=== PATIENT | female | born 1960 | race Caucasian/White ===

== ENCOUNTER → 2016-08-12 | Outpatient (CLI) | payer BC | LOC: RAD 15:01 | PROVIDERS: ATTEND Family Medicine | DX: M25.562 Pain in left knee (principal); M22.42 Chondromalacia patellae, left knee ==

== ENCOUNTER → 2018-03-24 | Outpatient (CLI) | payer BC ==
[2018-03-24 08:08] LABS: ABSOLUTE BASOPHILS # (AUTO) 0.1 10^3/uL (0.0-0.2); ABSOLUTE EOSINOPHILS # (AUTO) 0.2 10^3/uL (0.0-0.6); ABSOLUTE LYMPHOCYTES (AUTO) 2.3 10^3/uL (0.5-4.7); ABSOLUTE MONOCYTES (AUTO) 0.5 10^3/uL (0.1-1.4); ABSOLUTE NEUT (AUTO) 5.1 10^3/uL (1.7-8.2); BASOPHILS % (AUTO) 0.8 % (0-2); EOSINOPHILS % (AUTO) 2.5 % (0-6); HEMATOCRIT 41.5 % (36.0-47.0); HEMOGLOBIN 14.2 g/dL (12.0-15.5); LYMPHOCYTES % (AUTO) 28.1 % (13-45); MEAN CORPUSCULAR HEMOGLOBIN 30.3 pg (27.0-33.4); MEAN CORPUSCULAR HGB CONC 34.3 g/dL (32.0-36.0); MEAN CORPUSCULAR VOLUME 89 fl (80-97); MONOCYTES % (AUTO) 6.2 % (3-13); PLATELET COUNT 136 10^3/uL (150-450); RED BLOOD COUNT 4.69 10^6/uL (3.72-5.28); RED CELL DISTRIBUTION WIDTH 13.2 % (11.5-14.0); SEGMENTED NEUTROPHILS % (AUTO) 62.4 % (42-78); TOTAL CELLS COUNTED % (AUTO) 100 %; WHITE BLOOD COUNT 8.2 10^3/uL (4.0-10.5)
[2018-03-24 08:35] LABS: ALANINE AMINOTRANSFERASE 38 U/L (9-52); ALBUMIN 4.2 g/dL (3.5-5.0); ALKALINE PHOSPHATASE 82 U/L (38-126); ASPARTATE AMINO TRANSFERASE 32 U/L (14-36); BILIRUBIN,DIRECT 0.4 mg/dL (0.0-0.4); BILIRUBIN,TOTAL 0.5 mg/dL (0.2-1.3); BLOOD UREA NITROGEN 28 mg/dL (7-20); CALCIUM 9.2 mg/dL (8.4-10.2); CARBON DIOXIDE 28 mmol/L (22-30); CHLORIDE 103 mmol/L (98-107); CHOLESTEROL 207.22 mg/dL (0-200); GLUCOSE 114 mg/dL (75-110); POTASSIUM 4.6 mmol/L (3.6-5.0); TRIGLYCERIDES 213 mg/dL (<150)
[2018-03-24 08:48] LABS: ANION GAP 8 (5-19); SODIUM 138.6 mmol/L (137-145)
[2018-03-24 08:49] LABS: DIRECT LDL 112 mg/dL (<100)
[2018-03-24 08:57] LABS: VLDL CHOLESTEROL 42.6 mg/dL (10-31)
== END ==
LOC: OD 07:14
PROVIDERS: ATTEND Nurse Practitioner Family
DX: Z13.1 Encounter for screening for diabetes mellitus (principal); K44.9 Diaphragmatic hernia without obstruction or gangrene; Z13.220 Encounter for screening for lipoid disorders; E66.3 Overweight
CPT/HCPCS: 36415; 80053; 80061; 83036; 84443; 85025

== ENCOUNTER → 2018-05-11 | Outpatient (CLI) | payer BC ==
--- NOTE | 2018-05-11 13:56 | WOMENS IMAGING REPORT ---
EXAM DESCRIPTION: RIGHT DIAGNOSTIC MAMMO W/CAD COMPLETED DATE/TIME: 05/11/2018 12:14 pm REASON FOR STUDY: RIGHT DIAGNOSTIC MAMMO R92.2/ CLUSTER OF CALCIFICATIONS R92.2 INCONCLUSIVE MAMMOG RICHARD COMPARISON: 05/05/2018 TECHNIQUE: True lateral and magnification views. LIMITATIONS: None. FINDINGS: BREAST: right MASSES: No suspicious masses. CALCIFICATIONS: Calcifications upper inner quadrant posteriorly uniform density without evidence of b ranching or associated mass. ARCHITECTURAL DISTORTION: None. DEVELOPING DENSITY: None. ASYMMETRY: None noted. OTHER: No other significant findings. IMPRESSION: Benign findings. BREAST DENSITY: c. The breasts are heterogeneously dense, which may obscure small masses. BIRAD: 2 Benign findings. RECOMMENDATION: RECOMMENDED FOLLOW UP: Birads 1 or 2: The patient should resume routine screening . SPECIFIC INTERVENTION/IMAGING/CONSULTATION RECOMMENDED:No additional intervention/ imaging/consultati on needed at this time. COMMUNICATION:The imaging findings were not discussed with the patient. Her referring provider has be en notified of the findings. COMMENT: The patient has been notified of the results by letter per SA requirements. Additional no tification policies are in place for contacting patient with suspicious or incomplete findings. Quality ID #[id number]: The [employer] recommends an annual screening mammogram for women aged 40 years or over. This facility utilizes a reminder system to ensure that all patients receive reminder letters, and/or direct phone calls for appointments. This includes reminders for routine scr eening mammograms, diagnostic mammograms, or other Breast Imaging Interventions when appropriate. Th is patient will be placed in the appropriate reminder system. The [employer] (A[employer]) has developed recommendations for screening MRI of the breast s in certain patient populations, to be used in conjunction with mammography. Breast MRI surveillanc e may be appropriate for women with more than 20% lifetime risk of developing breast cancer as deter mined by genetic testing, significant family history of the disease, or history of mantle radiation f or Hodgkins Disease. ACR Practice Guidelines 2008. TECHNICAL DOCUMENTATION: FINDING NUMBER: (1) ASSESSMENT: (1) JOB ID: [id number] [employer]- All Rights Reserved Reading location - IP/workstation name: [facility]
== END ==
LOC: WI 11:45
PROVIDERS: ATTEND Nurse Practitioner Family
DX: R92.2 Inconclusive mammogram (principal)

== ENCOUNTER → 2018-11-16 | Outpatient (CLI) | payer BC ==
[2018-11-16 09:51] LABS: ABSOLUTE BASOPHILS # (AUTO) 0.1 10^3/uL (0.0-0.2); ABSOLUTE EOSINOPHILS # (AUTO) 0.2 10^3/uL (0.0-0.6); ABSOLUTE LYMPHOCYTES (AUTO) 2.3 10^3/uL (0.5-4.7); ABSOLUTE MONOCYTES (AUTO) 0.5 10^3/uL (0.1-1.4); ABSOLUTE NEUT (AUTO) 4.8 10^3/uL (1.7-8.2); BASOPHILS % (AUTO) 0.9 % (0-2); HEMATOCRIT 40.2 % (36.0-47.0); HEMOGLOBIN 13.4 g/dL (12.0-15.5); LYMPHOCYTES % (AUTO) 29.6 % (13-45); MEAN CORPUSCULAR HEMOGLOBIN 29.4 pg (27.0-33.4); MEAN CORPUSCULAR HGB CONC 33.4 g/dL (32.0-36.0); MEAN CORPUSCULAR VOLUME 88 fl (80-97); MONOCYTES % (AUTO) 6.3 % (3-13); PLATELET COUNT 144 10^3/uL (150-450); RED BLOOD COUNT 4.56 10^6/uL (3.72-5.28); RED CELL DISTRIBUTION WIDTH 13.6 % (11.5-14.0); SEGMENTED NEUTROPHILS % (AUTO) 61.2 % (42-78); TOTAL CELLS COUNTED % (AUTO) 100 %; WHITE BLOOD COUNT 7.8 10^3/uL (4.0-10.5)
[2018-11-16 10:11] LABS: CHOLESTEROL 185.35 mg/dL (0-200); IRON(TIBC) 87.8 ug/dL (37-170); TRIGLYCERIDES 101 mg/dL (<150)
[2018-11-16 10:25] LABS: DIRECT LDL 106 mg/dL (<100)
[2018-11-16 11:18] LABS: FOLATE 6.64 ng/mL (>2.76)
== END ==
LOC: OD 09:13
PROVIDERS: ATTEND Nurse Practitioner Family
DX: R53.83 Other fatigue (principal); Z13.220 Encounter for screening for lipoid disorders
CPT/HCPCS: 36415; 80061; 82607; 82728; 82746; 83036; 83540; 83550; 84443; 85025

== ENCOUNTER → 2020-04-27 | Outpatient (CLI) | payer BC ==
[2020-04-27 10:04] VITALS: BP 107/52
--- NOTE | 2020-04-27 10:04 | ER RDC ASSESSMENT REPORT ---
Intake - In the Last 14 days Have you traveled outside [place]?: No Have you been in close contact with someone CONFIRMED: Yes Worked in Healthcare?: Yes --Where?: Patient is an RN and works at [employer] - Symptoms Subjective Fever([place] feverish): No Chills: No Muscule Aches: No Runny Nose: Yes Sore Throat: Yes Cough (New or worsening chronic cough): No Shortness of breath: No Nausea or Vomiting: No Headache: No Abdominal Pain: No Diarrhea(3 or more loose stools in last 24 hours): No - Do you have any of the following Chronic lung disease: Asthma or emphysema or COPD: No Cystic Fibrosis: No Diabetes: No High Blood Pressure: No Cardiovascular Disease: No Chronic Kidney Disease: No Chronic Liver Disease: No Chronic blood disorder like Sickle Cell Disease: No Weak immune system due to disease or medication: No Neurologic condition that limits movement: No Developmental delay - Moderate to Severe: No Recent (within past 2 weeks) or current : No Morbid Obesity (>100 pounds over ideal weight): No Obesity Comment: Height 5 feet 9 inches weight 191 pounds - Objective Temperature: 98.5 F Pulse Rate: 64 Respiratory Rate: 16 Blood Pressure: 107/52 O2 Sat by Pulse Oximetry: 96 Objective: Given above, testing performed: If Testing Performed: Test Specimen Type Sent to General - General Information source: Patient Notes: Patient here at [facility] for Covid testing patient reports had positive exposure to someone known positive for Covid on last Thursday and Thursday patient started to have symptoms on Thursday to include congestion runny nose sore throat patient is a nurse at [employer]. - Related Data Allergies/Adverse Reactions: Sulfa (Sulfonamide Antibiotics) Allergy (Intermediate, Verified 04/16/15 07:54) RASH,ITCHING PPD Allergy (Uncoded 04/16/15 07:54) Converter Past Medical History - General Information source: Patient - Social History Smoking Status: Former Smoker - Quit 20 years ago - Past Medical History Cardiac Medical History: Denies: Hx Coronary Artery Disease, Hx Heart Attack, Hx Hypertension Pulmonary Medical History: Denies: Hx Asthma, Hx COPD, Hx Pneumonia Neurological Medical History: Denies: Hx Cerebrovascular Accident, Hx Seizures GI Medical History: Reports: Hx Gastroesophageal Reflux Disease, Hx Hiatal Hernia. Denies: Hx Hepatitis, Hx Ulcer Musculoskeletal Medical History: Reports Hx Arthritis Infectious Medical History: Denies: Hx Hepatitis Past Surgical History: Reports: Hx Hysterectomy. Denies: Hx Adenoidectomy, Hx Mastectomy, Hx Open Heart Surgery, Hx Pacemaker Physical Exam - General General appearance: Appears well, Alert In distress: None Notes: PHYSICAL EXAMINATION: GENERAL: Well-appearing and in no acute distress. HEAD: Atraumatic, normocephalic. EYES: sclera anicteric, conjunctiva are normal. ENT: nares patent. Moist mucous membranes. NECK: Normal range of motion, supple without lymphadenopathy LUNGS: CTAB and equal. No wheezes rales or rhonchi. Respirations even and unlabored lung sounds clear HEART: Regular rate and rhythm without murmurs ABDOMEN: Soft, nontender, normal bowel sounds, no guarding. EXTREMITIES: Normal range of motion, no pitting edema. No cyanosis. NEUROLOGICAL: Cranial nerves grossly intact. Normal speech. Normal gait. PSYCH: Normal mood, normal affect. SKIN: Warm, Dry, normal turgor, no rashes or lesions noted Diagnostic Results Laboratory Results: Patient informed of negative rapid strep and negative rapid flu results. Pending strep culture pending Covid testing results. Patient provided instructions regarding Covid to include: As a person under investigation for Covid 19, the [place] department of Health and Human Services, division of public health advises you to adhere to the following guidance until your test results are reported to you. If your test result is positive, you will receive additional information from your provider and your local health department at that time. Remain at home until you are cleared by the health provider or public health authorities. Keep a log of visitors to your home, notify any visitors to your home of your isolation status. If you plan to move to a new address or leave the county, notify the local health department in your County. Call your doctor or seek care if you have an urgent medical need. Before seeking medical care, call ahead to get instructions from the provider before arriving at the medical office clinic or hospital. Notify them that you are being tested for the virus that causes Covid 19 so that arrangements can be made, as necessary, to prevent transmission to others in the healthcare setting. Next, notify the local health department in your county. If a medical emergency arises and you need to call 911, inform the first responders that you are being tested for the virus that causes Covid 19. Next, notify the local health department in your county. Patient Education/Counseling Counseling/Education: Patient presents with upper respiratory symptoms worrisome for possible Covid 19. Patient does not have emergency worring symptoms such as difficulty breathing, shortness of breath, chest pain, pressure, confusion or cyanosis. Patient appears suitable for discharge. Patient instructed to follow-up with PCP Gricelda MORALES today. To ED for persistent or worsening symptoms patient's vital signs are stable and patient is nontoxic in appearance. Good return precautions have been discussed with patient, patient verbalized understanding and is agreeable with discharge plan of care at this time. C Discharge - Discharge Condition: Stable Disposition: Home; Selfcare
[2020-04-27 12:15] LABS: A TYPE INFLUENZA AG NEGATIVE (NEGATIVE); B INFLUENZA AG NEGATIVE (NEGATIVE)
== END ==
LOC: RDC 09:21
PROVIDERS: ATTEND Nurse Practitioner Family
DX: Z20.828 Contact with and (suspected) exposure to other viral communicable diseases (principal); R09.89 Other specified symptoms and signs involving the circulatory and respiratory systems; J02.9 Acute pharyngitis, unspecified; K21.9 Gastro-esophageal reflux disease without esophagitis
CPT/HCPCS: 87070; 87880; 87804; U0003; C9803; 87635

== ENCOUNTER → 2020-07-05 | Outpatient (CLI) | payer BC ==
[~2020-07-05] MED LIST: COVID-19 VACCINE (PFIZER)/PF 30 MCG/0.3 ML VIAL IM ONE; EPINEPHRINE INJ/PF 1 MG/1 ML AMPULE IM PRN
== END ==
LOC: EMPHEALTH 08:50
PROVIDERS: ATTEND Internal Medicine
DX: Z23 Encounter for immunization (principal)
CPT/HCPCS: 91300

== ENCOUNTER → 2020-07-05 | Outpatient (CLI) | payer BC ==
[2020-07-05 09:25] LABS: ABSOLUTE BASOPHILS # (AUTO) 0.1 10^3/uL (0.0-0.2); ABSOLUTE EOSINOPHILS # (AUTO) 0.3 10^3/uL (0.0-0.6); ABSOLUTE LYMPHOCYTES (AUTO) 2.1 10^3/uL (0.5-4.7); ABSOLUTE MONOCYTES (AUTO) 0.4 10^3/uL (0.1-1.4); ABSOLUTE NEUT (AUTO) 4.4 10^3/uL (1.7-8.2); BASOPHILS % (AUTO) 0.8 % (0-2); EOSINOPHILS % (AUTO) 3.9 % (0-6); HEMATOCRIT 37.1 % (36.0-47.0); HEMOGLOBIN 12.6 g/dL (12.0-15.5); LYMPHOCYTES % (AUTO) 28.4 % (13-45); MEAN CORPUSCULAR HEMOGLOBIN 29.7 pg (27.0-33.4); MEAN CORPUSCULAR HGB CONC 34.1 g/dL (32.0-36.0); MEAN CORPUSCULAR VOLUME 87 fl (80-97); PLATELET COUNT 138 10^3/uL (150-450); RED BLOOD COUNT 4.24 10^6/uL (3.72-5.28); RED CELL DISTRIBUTION WIDTH 13.9 % (11.5-14.0); SEGMENTED NEUTROPHILS % (AUTO) 60.9 % (42-78); TOTAL CELLS COUNTED % (AUTO) 100 %; WHITE BLOOD COUNT 7.3 10^3/uL (4.0-10.5)
[2020-07-05 09:54] LABS: ALBUMIN 4.1 g/dL (3.5-5.0); ALKALINE PHOSPHATASE 88 U/L (38-126); ANION GAP 7 (5-19); ASPARTATE AMINO TRANSFERASE 29 U/L (14-36); BILIRUBIN,DIRECT 0.2 mg/dL (0.0-0.4); BILIRUBIN,TOTAL 0.7 mg/dL (0.2-1.3); BLOOD UREA NITROGEN 18 mg/dL (7-20); CALCIUM 9.6 mg/dL (8.4-10.2); CARBON DIOXIDE 28 mmol/L (22-30); CHLORIDE 104 mmol/L (98-107); CHOLESTEROL 191.18 mg/dL (0-200); GLUCOSE 119 mg/dL (75-110); POTASSIUM 4.5 mmol/L (3.6-5.0); TOTAL PROTEIN 6.7 g/dL (6.3-8.2); TRIGLYCERIDES 117 mg/dL (<150)
[2020-07-05 10:05] LABS: DIRECT LDL 103 mg/dL (<100)
== END ==
LOC: OD 08:27
PROVIDERS: ATTEND Nurse Practitioner Family
DX: K21.9 Gastro-esophageal reflux disease without esophagitis (principal); B00.9 Herpesviral infection, unspecified; G43.909 Migraine, unspecified, not intractable, without status migrainosus; E66.9 Obesity, unspecified
CPT/HCPCS: 36415; 80053; 80061; 83036; 85025

== ENCOUNTER → 2020-07-26 | Outpatient (CLI) | payer BC ==
--- OUTSIDE RECORDS SUMMARY | 2020-07-26 08:59 | XMS REPORT ---
:1960 Author Organization [facility] Address [address] [place] [address] Care Team Providers Name Role Phone RONAN JONES Primary Care Physician Unavailable Sink Family Nurse Practitioner, Mrs Attending Clinician Karen SANCHEZP, MS, Mrs Attending Clinician Karen SANCHEZP, MS, Mrs Unavailable Allergies, Adverse Reactions, Alerts Allergy Allergy Type Status Severity Reaction(s) Onset Inactive Treat ing Comments Name Date Date Clinician Sulfa Propensity Active High Hives 2020-06 (Sulfonam to adverse -17 juanjose reactions 00:00:0 Antibioti 0 cs) Sulfa Allergy to Active Rash (Sulfonam substance juanjose Antibioti cs) Medications Ordered Filled Start Stop Current Ordering Indication Dosage Frequency Signature Comments Components Medication Medication Date Date Medication? Clinician (SIG) Name Name PARoxetine 2019-07 Yes PARoxetine (PAXIL) 20 07-17 (PAXIL) 20 MG tablet 00:00: MG tablet 00 celecoxib 2019-07 Yes celecoxib (CELEBREX) 07-17 (CELEBREX) 200 MG 00:00: 200 MG capsule 00 capsule valACYclovi 2019-07 Yes valACYclov r (VALTREX) 07-17 ir 500 MG 00:00: (VALTREX) tablet 00 500 MG tablet pantoprazol 2019-07 Yes pantoprazo e 07-17 le (PROTONIX) 00:00: (PROTONIX) 40 MG 00 40 MG tablet tablet Phentermine Yes Take 1 HCl 37.5 MG 5-01 tablet 04:00: (37.5 mg) 00 by mouth daily aspirin Yes Take by Take by (ASPIR-81 mouth mouth ORAL) daily. daily. cyanocobala Yes 1000ug Take 1,000 Ta ke min, mcg by 1,000 mcg vitamin mouth by mouth B-12, 1000 daily. daily. MCG tablet SUMAtriptan Yes 1{tbl} Take 1 Take 1 -naproxen tablet by tablet by (TREXIMET) mouth mouth 85-500 mg every two every two per tablet (2) hours (2) h ours as needed as needed for for migraine. migraine. celecoxib No celecoxib 200 mg 200 mg capsule capsule pantoprazol No pantoprazo e 40 mg le 40 mg tablet,ventura tablet,del yed release ayed release paroxetine No paroxetine 20 mg 20 mg tablet tablet valacyclovi No valacyclov r 500 mg ir 500 mg tablet tablet Celecoxib Yes Take 1 200 MG capsule (200 mg) by mouth 2 times per day with food as needed Paroxetine Yes Take 1 HCl 20 MG tablet (20 mg) by mouth daily in the morning Valacyclovi Yes Take 1 r HCl 500 tablet MG (500 mg) by mouth 2 times per day Cetirizine Yes Take 1 HCl 10 MG tablet (10 mg) by mouth daily Tramadol Yes daily prn HCl 50 MG chronic pain Pantoprazol Yes Take 1 e Sodium 40 tablet (40 MG mg) by mouth daily Sumatriptan Yes Take one -Naproxen at the Sodium onset of a 85-500 MG headache Phentermine 2019- No Take 1 HCl 37.5 MG 08-05 tablet 08:00 (37.5 mg) :00 by mouth daily Esomeprazol 2018- No Take 1 e Magnesium 03-18 packet (40 40 MG 04:00 mg) by :00 mouth 2 times per day 1 hour before meals mixed with 15 ml of water Problems Condition Condition Condition Status Onset Resolution Last Treatin g Comments Name Details Category Date Date Treatment Clinician Date Incontinenc Incontinenc 75415997 Active 2019-072020-06-21 e of feces e of feces 08-22 09:51:58 with fecal with fecal 00:00: urgency urgency 00 Vaginal Vaginal [id number] Active 2019-072020-06-21 vault vault 08-22 09:51:59 prolapse prolapse 00:00: 00 Cystocele, Cystocele, [id number] Active 2019-072020-06-21 midline midline 08-22 09:52:00 00:00: 00 Rectocele Rectocele [id number] Active 2019-072020-06-2108-22 09:52:01 00:00: 00 SAMINA (stress SAMINA (stress [id number] Active 2019-072020-06-21 urinary urinary 2-17 09:52:02 incontinenc incontinenc 00:00: e, female) e, female) 00 Urge Urge [id number] Active 2019-072020-06-21 incontinenc incontinenc 2-17 09:52:03 e e 00:00: 00 Pain of Pain of Problem Active left ankle Left Ankle 3-09 joint Joint 00:00: 00 Calcaneal Calcaneal Problem Active spur of Spur of 3-09 left foot Left Foot 00:00: 00 Stiffness Stiffness Problem Active of left of Left 6-27 knee Knee 00:00: 00 Osteoarthri Osteoarthri Problem Active tis of left tis of Left 3-18 knee joint Knee Joint 00:00: 00 Herpes Herpes Problem Active 2017-07 simplex Simplex 07-31 type 1 Type 1 00:00: infection Infection 00 Insomnia Insomnia Problem Active 2017-07 00:00: 00 Idiopathic Idiopathic Diagnosis Active Droberg, osteoarthri osteoarthri Ronan tis tis Allergic Allergic Diagnosis Active Droberg, rhinitis rhinitis Ronan Gastroesoph Gastroesoph Diagnosis Active Drober g, ageal ageal Ronan reflux reflux disease disease Hiatal Hiatal Diagnosis Active Droberg, hernia hernia Ronan Obesity Obesity Diagnosis Active Droberg, Ronan Herpes Herpes Diagnosis Active Droberg, simplex simplex Ronan Cramp in Cramp in Diagnosis Active Droberg, lower limb lower limb Ronan Allergic Allergic Diagnosis Active Droberg, disposition disposition Ronan Pain in Pain in Diagnosis Active Droberg, left knee left knee Ronan Osteoarthri Osteoarthri Diagnosis Active Drober g, tis of knee tis of knee Ronan Migraine Migraine Diagnosis Active Droberg, Ronan Change in Change in Diagnosis Active Droberg, stool stool Ronan consistency consistency Screening Screening Diagnosis Active Droberg, mammography mammography Ronan Procedures Procedure Date / Time Performed Performing Clinician Devic e POCT URINALYSIS DIPSTICK, 2020-06-21 09:05:00 Rosa Aguilar INTERFACED Documentation of current 2019-09-02 00:00:00 Droberg, Ronan medications (procedure) Documentation of current 2019-08-05 00:00:00 Droberg, Ronan medications (procedure) Nutrition counseling 2019-03-18 19:50:00 Ronan Jones Peripherally acting antiobesity 2019-03-18 19:49:00 Angela Jones drug Weight control education 2019-03-18 19:49:00 Ronan Jones (procedure) Counseling about physical 2019-03-18 19:49:00 Ronan Jones activity (exercise) Next appointment 2019-03-18 19:49:00 Ronan Jones Laboratory data interpretation 2019-03-18 04:00:00 Louisa Jones cca Calculated BMI above normal 2019-03-18 04:00:00 Ronan Jones parameters and a follow-up plan was documented Documentation of current 2019-03-18 00:00:00 Ronan Jones medications (procedure) Summary of care record not 2019-03-18 00:00:00 Ronan Jones available RADIOLOGIC EXAM, KNEE; 2018-05-31 00:00:00 COMPLETE, 4 OR MORE VIEWS Arthroscopy 2015-10-05 00:00:00 Procedure on Eyelid 2011-07-06 00:00:00 Cholecystectomy 2011-07-06 00:00:00 Excision of Hernandez's Neuroma of 2005-07-06 00:00:00 Peripheral Nerve Biopsy of Breast 1978-07-06 00:00:00 Results Test Description Test Time Test Comments Text Results Atomic Results Result Comments POCT Urinalysis Dipstick (06/21/2020 9:05 AM EST) 2020-06-21 09 :05:00 Test Item Value Reference Range Comments Spec Rison/POC (test code = Spec Rison/POC) 1.025 1.003-1.030 PH/POC (test code = PH/POC) 7 5.0-9.0 Leuk Esterase/POC (test code = Leuk Esterase/POC) 1+ Negative Nitrite/POC (test code = Nitrite/POC) Negative Negative Protein/POC (test code = Protein/POC) Negative Negative UA Glucose/POC (test code = UA Glucose/POC) Negative Nega tive Ketones, POC (test code = Ketones, POC) Negative Negative Bilirubin/POC (test code = Bilirubin/POC) Negative Negati ve Blood/POC (test code = Blood/POC) Negative Negative Urobilinogen/POC (test code = Urobilinogen/POC) 0.2 mg/dL 0.2 - 1.0 mg/dL SARS-CoV-2 RNA Resp Ql [id number] 00:00:00 Test Item Value Reference Range Comments SARS-CoV-2 RNA Resp Ql Not detected [place] Covid [facility] Case CIPRIANO+probe (test code = ID: COVID [id number]) Assessments Condition Name Status Diagnosis Date Treating Clinici an Obesity Active 2019-08-05 15:01:36 Pain of left ankle joint Active 2019-11-03 08:05:54 Calcaneal spur of left foot Active 2019-11-03 08:05:54 Pain of left ankle joint Active 2019-11-01 08:17:59 Calcaneal spur of left foot Active 2019-11-01 08:17:59 Pain of left ankle joint Active 2019-10-25 08:21:31 Calcaneal spur of left foot Active 2019-10-25 08:21:31 Pain of left ankle joint Active 2019-10-20 08:26:43 Calcaneal spur of left foot Active 2019-10-20 08:26:43 Pain of left ankle joint Active 2019-10-18 08:42:38 Calcaneal spur of left foot Active 2019-10-18 08:42:38 Pain of left ankle joint Active 2019-10-13 07:58:14 Calcaneal spur of left foot Active 2019-10-13 07:58:14 Pain of left ankle joint Active 2019-10-11 10:19:05 Calcaneal spur of left foot Active 2019-10-11 10:19:05 Pain of left ankle joint Active 2019-10-06 08:17:40 Calcaneal spur of left foot Active 2019-10-06 08:17:40 Pain of left ankle joint Active 2019-10-04 14:16:38 Calcaneal spur of left foot Active 2019-10-04 14:16:38 Pain of left ankle joint Active 2019-09-29 13:58:52 Calcaneal spur of left foot Active 2019-09-29 13:58:52 Pain of left ankle joint Active 2019-09-27 15:41:25 Calcaneal spur of left foot Active 2019-09-27 15:41:25 Pain of left ankle joint Active 2019-09-22 08:04:20 Calcaneal spur of left foot Active 2019-09-22 08:04:20 Pain of left ankle joint Active 2019-09-20 08:59:44 Calcaneal spur of left foot Active 2019-09-20 08:59:44 Pain of left ankle joint Active 2019-09-14 15:29:13 Calcaneal spur of left foot Active 2019-09-14 15:29:13 Pain of left ankle joint Active 2019-09-12 14:53:19 Calcaneal spur of left foot Active 2019-09-12 14:53:49 Change in stool consistency Active 2019-08-05 13:25:14 Screening mammography Active 2019-08-05 13:25:26 Gastroesophageal reflux disease Active 2019-03-18 13:01 :20 Obesity Active 2019-08-05 15:01:36 Pain in left knee Active 2019-03-31 09:54:21 Osteoarthritis of left knee joint Active 2019-03-31 09: 54:21 Stiffness of left knee Active 2019-03-31 09:54:21 Cramp in lower limb Active 2019-03-18 13:02:36 Osteoarthritis of knee Active 2019-03-18 13:09:20 Allergic rhinitis Active 2019-03-18 13:01:09 Herpes simplex Active 2019-03-18 13:02:07 Gastroesophageal reflux disease Active 2019-03-18 13:01 :20 Migraine Active 2019-03-18 19:45:52 Hiatal hernia Active 2019-03-18 13:01:34 Obesity Active 2019-08-05 15:01:36 Idiopathic osteoarthritis Active 2019-03-18 13:00:50 Pain in left knee Active 2019-03-18 13:09:04 Allergic disposition Active 2019-03-18 13:03:01 Pain in left knee Active 2019-03-08 09:03:05 Osteoarthritis of left knee joint Active 2019-03-08 09: 03:05 Stiffness of left knee Active 2019-03-08 09:03:05 Pain in left knee Active 2019-03-04 08:16:01 Osteoarthritis of left knee joint Active 2019-03-04 08: 16:01 Stiffness of left knee Active 2019-03-04 08:16:01 Pain in left knee Active 2019-03-02 09:27:45 Osteoarthritis of left knee joint Active 2019-03-02 09: 27:45 Stiffness of left knee Active 2019-03-02 09:27:45 Pain in left knee Active 2019-02-23 08:41:37 Osteoarthritis of left knee joint Active 2019-02-23 08: 41:37 Stiffness of left knee Active 2019-02-23 08:41:37 Pain in left knee Active 2019-02-21 14:13:26 Osteoarthritis of left knee joint Active 2019-02-21 14: 21:57 Pain in left knee Active 2019-02-21 14:13:26 Osteoarthritis of left knee joint Active 2019-02-21 14: 21:57 Stiffness of left knee Active 2019-02-21 14:35:12 Pain in left knee Active 2019-02-02 10:03:18 Osteoarthritis of left knee joint Active 2019-02-02 10: 03:18 Stiffness of left knee Active 2019-02-02 10:03:18 Pain in left knee Active 2019-02-02 10:03:18 Osteoarthritis of left knee joint Active 2019-02-02 10: 03:18 Stiffness of left knee Active 2019-02-02 10:03:18 Pain in left knee Active 2019-01-31 12:08:43 Osteoarthritis of left knee joint Active 2019-01-31 12: 08:43 Stiffness of left knee Active 2019-01-31 12:08:43 Pain in left knee Active 2019-01-31 12:08:43 Osteoarthritis of left knee joint Active 2019-01-31 12: 08:43 Stiffness of left knee Active 2019-01-31 12:08:43 Pain in left knee Active 2019-01-26 13:01:51 Osteoarthritis of left knee joint Active 2019-01-26 13: 01:51 Stiffness of left knee Active 2019-01-26 13:01:51 Pain in left knee Active 2019-01-26 13:01:51 Osteoarthritis of left knee joint Active 2019-01-26 13: 01:51 Stiffness of left knee Active 2019-01-26 13:01:51 Pain in left knee Active 2019-01-25 09:56:03 Osteoarthritis of left knee joint Active 2019-01-25 09: 56:03 Stiffness of left knee Active 2019-01-25 09:56:03 Pain in left knee Active 2019-01-25 09:56:03 Osteoarthritis of left knee joint Active 2019-01-25 09: 56:03 Stiffness of left knee Active 2019-01-25 09:56:03 Pain in left knee Active 2019-01-21 08:08:12 Osteoarthritis of left knee joint Active 2019-01-21 08: 08:12 Stiffness of left knee Active 2019-01-21 08:08:12 Pain in left knee Active 2019-01-21 08:08:12 Osteoarthritis of left knee joint Active 2019-01-21 08: 08:12 Stiffness of left knee Active 2019-01-21 08:08:12 Pain in left knee Active 2019-01-12 16:35:51 Osteoarthritis of left knee joint Active 2019-01-12 16: 35:51 Stiffness of left knee Active 2019-01-12 16:35:51 Pain in left knee Active 2019-01-10 17:30:21 Osteoarthritis of left knee joint Active 2019-01-10 17: 30:21 Stiffness of left knee Active 2019-01-10 17:30:21 Pain in left knee Active 2019-01-07 10:42:34 Osteoarthritis of left knee joint Active 2019-01-07 10: 42:34 Stiffness of left knee Active 2019-01-07 10:42:34 Pain in left knee Active 2019-01-05 08:18:11 Osteoarthritis of left knee joint Active 2019-01-05 08: 18:11 Stiffness of left knee Active 2019-01-05 08:18:11 Pain in left knee Active 2019-01-03 15:00:24 Osteoarthritis of left knee joint Active 2019-01-03 15: 00:24 Stiffness of left knee Active 2019-01-03 15:00:24 Pain in left knee Active 2018-12-31 09:37:50 Osteoarthritis of left knee joint Active 2018-12-31 09: 37:50 Stiffness of left knee Active 2018-12-31 09:37:50 Pain in left knee Active 2018-12-30 08:43:02 Osteoarthritis of left knee joint Active 2018-12-30 08: 43:13 Stiffness of left knee Active 2018-12-30 08:43:52 Pain in left knee Active 2018-12-20 13:29:02 Osteoarthritis of left knee joint Active 2018-12-20 13: 59:41 Pain in left knee Active 2018-12-20 13:29:02 Osteoarthritis of left knee joint Active 2018-12-20 13: 59:41 Pain in left knee Active 2018-11-15 09:19:18 Osteoarthritis of left knee joint Active 2018-11-15 09: 19:18 Pain in left knee Active 2018-09-20 13:42:13 Osteoarthritis of left knee joint Active 2018-09-20 13: 42:20 Pain in left knee Active 2018-09-13 15:41:50 Osteoarthritis of left knee joint Active 2018-09-14 12: 45:59 Pain in left knee Active 2018-09-06 16:10:18 Knee pain Active 2018-05-31 13:45:33 Osteoarthritis of left knee joint Active 2018-06-01 12: 23:49 Encounters Start End Encounter Admission Attending Care Care Encounter Date/Time Date/Time Type Type Clinicians Facility Department ID 2020-06-21 2020-06-21 Outpatient [facility] [id number]_ 08:40:11 10:00:52 [id number] 2020-06-21 2020-06-21 Outpatient [facility] [id number] 08:40:11 09:20:11 2020-06-21 2020-06-21 Outpatient [facility] [id number]_ 00:00:00 00:00:00 [id number] 2020-06-21 Outpatient [facility] [id number] 00:00:00 00:00:00 2019-11-04 2019-11-04 Obesity Sink, [facility] [id number] 00:00:00 [facility]-11-04 2019-11-03 2019-11-03 Titus Aleman [id number]_2019 00:00:00 00:00:00 Riley, PT: [facility] [address] [place] [address], Ph. 2019-11-01 2019-11-01 Titus Aleman 2531 54 00:00:00 00:00:00 Riley, PT: [facility] [address] [place] [address], Ph. 2019-10-25 2019-10-25 Titus Aleman [id number] _2019 00:00:00 00:00:00 Riley, PT: [facility] [address] [place] [address], Ph. 2019-10-20 2019-10-20 Titus Aleman [id number] 54_2020 00:00:00 00:00:00 Riley, PT: [facility] [address] [place] [address], Ph. 2019-10-18 2019-10-18 Titus Tim Aleman [id number]_2019 00:00:00 00:00:00 Riley, PT: [facility] [address] [place] [address], Ph. 2019-10-13 2019-10-13 Titus Tim Ortegat Cra[place] [id number]_2019 00:00:00 00:00:00 Riley, PT: [facility] [address] [place] [address], Ph. 2019-10-11 2019-10-11 Titus Tim Ortegat [id number] 00:00:00 00:00:00 Riley, PT: [facility] [address] [place] [address], Ph. 2019-10-06 2019-10-06 Titus Tim Ortegat [id number]_2020 00:00:00 00:00:00 Riley, PT: [facility] [address] [place] [address], Ph. 2019-10-04 2019-10-04 Tiuts Tim Ortegat [id number]_2019 00:00:00 00:00:00 Riley, PT: [facility] [address] [place] [address], Ph. 2019-09-29 2019-09-29 Titus Tim Love Joeeret [id number] 54_2019 00:00:00 00:00:00 Riley, PT: [facility] [address] [place] [address], Ph. 2019-09-27 2019-09-27 Titus Ortegat [id number] 00:00:00 00:00:00 Riley, PT: [facility] [address] [place] [address], Ph. 2019-09-22 2019-09-22 Kavitha Love Ortegat [id number] 020 00:00:00 00:00:00 Baker, Surgical Surgical 0319 PASTING INSPECTOR: [address] [place] [address], Ph. 2019-09-20 2019-09-20 Titus Tim Love Joeeret [id number] 54_2019 00:00:00 00:00:00 Riley, PT: [facility] [address] [place] [address], Ph. 2019-09-14 2019-09-14 Kavitha Love Ortegat [id number] 020 00:00:00 00:00:00 Baker, Surgical Surgical 0311 PASTING INSPECTOR: [address] [place] [address], Ph. 2019-09-12 2019-09-12 Titus Ortegat [id number] 00:00:00 00:00:00 Riley, PT: [facility] [address] [place] [address], Ph. 2019-09-02 2019-09-02 [facility] [id number] 00:00:00 00:00:00 raissa Aleman [facility] 2019-09-02 2019-08-05 2019-08-05 Gastroesopha [facility] [id number] 00:00:00 00:00:00 geal reflux Ronan [facility] 2019-08-05 2019-03-31 2019-03-31 Titus Aleman Love [id number] 00:00:00 00:00:00 Riley, PT: [facility] [address] [place] [address], Ph. 2019-03-18 2019-03-18 Cramp in [facility] [id number] 00:00:00 00:00:00 lower limb Ronan Aleman [facility] 2019-03-18 2019-03-08 2019-03-08 Titus Tim Joeleeroy Aleman [id number] 00:00:00 00:00:00 Riley, PT: [facility] [address] [place] [address], Ph. 2019-03-04 2019-03-04 Titus Tim Ortegaradha Aleman 2531 54_2018 00:00:00 00:00:00 Riley, PT: [facility] [address] [place] [address], Ph. 2019-03-02 2019-03-02 Titus Tmi Ortegaradha Aleman [id number] 54_2018 00:00:00 00:00:00 Riley, PT: [facility] [address] [place] [address], Ph. 2019-02-23 2019-02-23 Love Larose [id number] _2019 00:00:00 00:00:00 PASTING INSPECTOR: [address] [facility] [address] [place] [address], Ph. 2019-02-21 2019-02-21 Kwame Aleman [id number]_ 2018 00:00:00 00:00:00 MD Gladis: [facility] [address] [place] [address], Ph. [phone] 2019-02-21 2019-02-21 Kwame Aleman [id number]_ 2018 00:00:00 00:00:00 MD Gladis: [facility] [address] [place] [address], Ph. [phone] 2019-02-02 2019-02-02 Love Larose [id number] _2018 00:00:00 00:00:00 PASTING INSPECTOR: [address] [facility] [address] [place] [address], Ph. 2019-02-02 2019-02-02 Love Larose [id number] _[id number] 00:00:00 00:00:00 PASTING INSPECTOR: [address] [facility] [address] [place] [address], Ph. 2019-01-31 2019-01-31 Love Larose [id number] _2018 00:00:00 00:00:00 PASTING INSPECTOR: [address] [facility] [address] [place] [address], Ph. 2019-01-31 2019-01-31 Love Larose [id number] _2018 00:00:00 00:00:00 PASTING INSPECTOR: [address] [facility] [address] [place] [address], Ph. 2019-01-26 2019-01-26 Titus Aleman [id number] 00:00:00 00:00:00 Riley, PT: [facility] [address] [place] [address], Ph. 2019-01-26 2019-01-26 Titus Aleman [id number] 00:00:00 00:00:00 Riley, PT: [facility] [address] [place] [address], Ph. 2019-01-24 2019-01-24 Love Larose [id number] _2018 00:00:00 00:00:00 PASTING INSPECTOR: [address] [facility] [address] [place] [address], Ph. 2019-01-24 2019-01-24 Love Larose [id number] _2018 00:00:00 00:00:00 PASTING INSPECTOR: [address] [facility] [address] [place] [address], Ph. 2019-01-21 2019-01-21 Titus Aleman [id number] 00:00:00 00:00:00 Riley, PT: [facility] [address] [place] [address], Ph. 2019-01-21 2019-01-21 Titus Aleman [id number] 00:00:00 00:00:00 Riley, PT: [facility] [address] [place] [address], Ph. 2019-01-12 2019-01-12 Love Larose [id number] _2018 00:00:00 00:00:00 PASTING INSPECTOR: [address] [facility] [address] [place] [address], Ph. 2019-01-10 2019-01-10 Love Larose [id number] _2018 00:00:00 00:00:00 PASTING INSPECTOR: [address] [facility] [address] [place] [address], Ph. 2019-01-07 2019-01-07 Shyla Love Queen [id number] _2018 00:00:00 00:00:00 PASTING INSPECTOR: [address] [facility] [address] [place] [address], Ph. 2019-01-05 2019-01-05 Titus Aleman [id number]_2018 00:00:00 00:00:00 Riley, PT: [facility] [address] [place] [address], Ph. 2019-01-03 2019-01-03 Love Larose [id number] _2018 00:00:00 00:00:00 PASTING INSPECTOR: [address] [facility] [address] [place] [address], Ph. 2018-12-31 2018-12-31 Titus Aleman [id number]_2018 00:00:00 00:00:00 Riley, PT: [facility] [address] [place] [address], Ph. 2018-12-30 2018-12-30 Titus Aleman [id number]_2018 00:00:00 00:00:00 Riley, PT: [facility] [address] [place] [address], Ph. 2018-12-20 2018-12-20 Kwame Aleman [id number]_ 2018 00:00:00 00:00:00 MD Gladis: [facility] [address] [place] [address], Ph. [phone] 2018-12-20 2018-12-20 Kwame Aleman [id number]_ 2018 00:00:00 00:00:00 MD Gladis: [facility] [address] [place] [address], Ph. [phone] 2018-11-15 2018-11-15 Kwame Joeeret [id number]_ 2018 00:00:00 00:00:00 MD Gladis: [facility] [address] [place] [address], Ph. 2018-09-20 2018-09-20 Kwame Joeeret [id number]_ 2018 00:00:00 00:00:00 MD Gladis: [facility] [address] [place] [address], Ph. [phone] 2018-09-13 2018-09-13 Kwame Ortegat Craven [id number]_ 2018 00:00:00 00:00:00 MD Gladis: Surgical Surgical [address] [place] [address], Ph. [phone] 2018-09-06 2018-09-06 Kwame Aleman [place] [id number]_ 2018 00:00:00 00:00:00 MD Gladis: [facility] [address] [place] [address], Ph. [phone] 2018-05-31 2018-05-31 Kwame Joeeret [id number]_ 2017 00:00:00 00:00:00 MD Gladis: [facility] [address] [place] [address], Ph. [phone] Immunizations Ordered Filled Immunization Date Status Comments Refus al Reason Immunization Name Name influenza, 2018-04-05 Completed injectable, 00:00:00 quadrivalent vaccine Unknown Cancelled Payers Payer Name Policy Type Policy Number Effective Date Expiration D ate LUKAS ALVAREZ [id number] 2020 00:00:00 OPTIONS/PPO/ADV Plan of Treatment Planned Activity Planned Date Details Comments Future Scheduled Test [code = ] Future Scheduled Test [code = ] Future Scheduled Test [code = ] Future Scheduled Test [code = ] Future Scheduled Test [code = ] Future Scheduled Test [code = ] Future Scheduled Test [code = ] Future Scheduled Test [code = ] Future Scheduled Test [code = ] Future Scheduled Test [code = ] Future Scheduled Test [code = ] Future Scheduled Test [code = ] Future Scheduled Test [code = ] Assessment and Plan Assessment or Activity Date Comments Care plan 2019-11-04 Date of Encounter: Plan: Pt is instructed to contin ue diet and exercise. Pt appears motivated an d I counseled her on the importance of mainta ining her diet and exercise. Pt is to f/u in 1 month for weight and BP check.Refill Phentermine today ME DICATIONS: Phentermine HCl 37.5 MG Oral Tablet Take 1 tablet (37.5 mg) by mouth daily (start date: ) Care plan 2019-08-05 Date of Encounter: Plan: Refill phentermine as an ad junct to diet and exercise.Small frequ ent meals. Discussed carbs and lean protein.Rx for screening mammogram [facility]. Add Fiber supplementAdd probioticRTC 1 mo fo r weight check and 3mo for OVMEDICATIONS: Phent ermine HCl 37.5 MG Oral Tablet Take 1 tablet (37.5 mg) by mouth daily Care plan 2019-03-18 Date of Encounter: Plan: Follow up with Dr Griffith as schedule d.Start weight loss plan with phentermine as an ad junct to diet and exercise. RTC 1mo for weight check and 3mo for OV.Labs reviewed today.MEDICATIONS: P axil 20 MG Oral Tablet Take 1 tablet (20 mg) by mo uth daily in the morning Valtrex 500 MG Oral Tablet Take 1 tablet (500 mg) by mouth 2 times per day Protonix 40 MG Oral Tablet Delayed Release Take 1 tablet (40 mg) by mouth daily SUMAtriptan-Na proxen Sodium 85-500 MG Oral Tablet Take one at t he onset of a headache Phentermine HCl 37.5 MG Oral Tablet Take 1 tablet (37.5 mg) by mouth d aily Care plan 2019-09-02 Date of Encounter: 2 Addendum date 2019-09-02 source: Dee Dee thakur: Encounter type changed from Office Visit - [id number] (SNOMED-CT) to Evaluation and manag ement of established outpatient in office or other o utpatient facility (procedur - [id number] (SNOMED-CT) .
Social History Social Habit Start Date Stop Date Comments History SDOH Alcohol Std Drinks History SDOH Alcohol Binge Tobacco smoking status MAIS 2020-06-21 00:00:00 2020-06-21 00:00 :00 Tobacco use and exposure 2020-06-21 00:00:00 2020-06-21 00:00:00 Alcohol intake 2020-06-21 00:00:00 2020-06-21 00:00:00 History SDOH Alcohol Frequency 2020-06-21 00:00:00 2020-06-21 00 :00:00 Smoking Status Start Date Stop Date Former Smoker Non-smoker 2019-11-04 05:45:51 Social History Observation Description Sex Female Vital Signs Vital Name Observation Time Observation Value Comments Height 2019-09-12 00:00:00 70 [in_i] BP Diastolic 2019-02-21 00:00:00 80 mm[Hg] Height 2019-02-21 00:00:00 70 [in_i] BMI (Body Mass Index) 2019-02-21 00:00:00 31.6 kg/m2 BP Systolic 2019-02-21 00:00:00 125 mm[Hg] Body Weight 2019-02-21 00:00:00 220 [lb_av] BP Diastolic 2018-12-20 00:00:00 70 mm[Hg] Height 2018-12-20 00:00:00 70 [in_i] BMI (Body Mass Index) 2018-12-20 00:00:00 31.6 kg/m2 BP Systolic 2018-12-20 00:00:00 128 mm[Hg] Body Weight 2018-12-20 00:00:00 220 [lb_av] Height 2018-11-15 00:00:00 70 [in_i] BMI (Body Mass Index) 2018-11-15 00:00:00 31.6 kg/m2 Body Weight 2018-11-15 00:00:00 220 [lb_av] BP Diastolic 2018-09-20 00:00:00 76 mm[Hg] Height 2018-09-20 00:00:00 70 [in_i] BMI (Body Mass Index) 2018-09-20 00:00:00 31.6 kg/m2 BP Systolic 2018-09-20 00:00:00 115 mm[Hg] Body Weight 2018-09-20 00:00:00 220 [lb_av] BP Diastolic 2018-09-13 00:00:00 79 mm[Hg] Height 2018-09-13 00:00:00 70 [in_i] BMI (Body Mass Index) 2018-09-13 00:00:00 31.6 kg/m2 BP Systolic 2018-09-13 00:00:00 121 mm[Hg] Body Weight 2018-09-13 00:00:00 220 [lb_av] BP Diastolic 2018-09-06 00:00:00 74 mm[Hg] Height 2018-09-06 00:00:00 70 [in_i] BMI (Body Mass Index) 2018-09-06 00:00:00 31.6 kg/m2 BP Systolic 2018-09-06 00:00:00 122 mm[Hg] Body Weight 2018-09-06 00:00:00 220 [lb_av] BP Diastolic 2018-05-31 00:00:00 84 mm[Hg] Height 2018-05-31 00:00:00 70 [in_i] BMI (Body Mass Index) 2018-05-31 00:00:00 31.6 kg/m2 BP Systolic 2018-05-31 00:00:00 141 mm[Hg] Body Weight 2018-05-31 00:00:00 220 [lb_av] Systolic blood pressure 2020-06-21 09:11:00 108 mm[Hg] Diastolic blood pressure 2020-06-21 09:11:00 53 mm[Hg] Heart rate 2020-06-21 09:11:00 71 /min Body height 2020-06-21 09:11:00 177.8 cm Body weight 2020-06-21 09:11:00 96.616 kg Systolic BP 2019-11-04 05:10:00 122 mm[Hg] Diastolic BP 2019-11-04 05:10:00 72 mm[Hg] Height 2019-11-04 05:10:00 175.26 cm Weight 2019-11-04 05:10:00 90.72 kg BMI (Body Mass Index) 2019-11-04 05:09:59 29.53 kg/m2 Height 2019-09-02 07:54:00 175.26 cm Weight 2019-09-02 07:54:00 93.08 kg BMI (Body Mass Index) 2019-09-02 07:53:59 30.3 kg/m2 Pulse 2019-08-05 04:59:00 72 /min Systolic BP 2019-08-05 04:59:00 128 mm[Hg] Diastolic BP 2019-08-05 04:59:00 83 mm[Hg] Temperature 2019-08-05 04:59:00 36.44 Gladys Height 2019-08-05 04:59:00 175.26 cm O2 Saturation 2019-08-05 04:59:00 97 % Weight 2019-08-05 04:59:00 94.26 kg Respiratory rate 2019-08-05 04:59:00 15 /min BMI (Body Mass Index) 2019-08-05 04:58:59 30.69 kg/m2 Pulse 2019-03-18 05:42:00 66 /min Systolic BP 2019-03-18 05:42:00 126 mm[Hg] Diastolic BP 2019-03-18 05:42:00 80 mm[Hg] Height 2019-03-18 05:42:00 175.26 cm O2 Saturation 2019-03-18 05:42:00 96 % Weight 2019-03-18 05:42:00 98.43 kg BMI (Body Mass Index) 2019-03-18 05:41:59 32.04 kg/m2 Hospital Discharge Instructions 1. Pain of left ankle joint 2. Calcaneal spur of left foot Discussion Note Progress Note due on I certify the need for these services furnished under this plan of treatment for up to 90 daysand while under my care. (see Physician signature below) Patient educational handouts: No information available.1. Pain in left knee 2. Osteoarthritis of left knee joint Discussion Note: None recorded. Patient educational handouts: No information available.1. Pain in left knee 2. Osteoarthritis of left knee joint Discussion Note: None recorded. Patient educational handouts: No information available.1. Pain in left knee Discussion Note: None recorded. Patient educational handouts: No information available.1. Knee pain XR, knee, 4 or more view 2. Osteoarthritis of left knee joint Discussion Note: Nonerecorded. Patient educational handouts: No information available.
== END ==
LOC: EMPHEALTH 08:55
PROVIDERS: ATTEND Internal Medicine
DX: Z23 Encounter for immunization (principal)
CPT/HCPCS: 91300